=== PATIENT | female | born 1985 | race American Indian/Alaskan Native ===

== ENCOUNTER 2017-02-25 08:57 | Emergency (ER) | payer BC ==
[2017-02-25 10:42] VITALS: BP 121/67
[2017-02-25] MEDS ORDERED: FLEXERIL PO ONE (11:18)
[2017-02-25] MEDS ORDERED: NORCO 5/325 PO ONE (11:18)
--- NOTE | 2017-02-25 11:18 | Emergency Department Report ---
ED Back Pain/Injury HPI - General Chief Complaint: Back Pain/Injury Stated Complaint: BACK PAIN Time Seen by Provider: 02/25/17 11:10 Source: patient, family Limitations: No Limitations - History of Present Illness Initial Comments: Patient here reports that she has a history of chronic back pain. She said that she never had a injury but she started having back pain today she woke up and she is having pain in her entire spine. She said this is being given worse over the last 2 days and when she got up this morning was very painful. She reports pain radiating into her buttocks. Pain is worse with movement better with rest. Denies any urinary burning frequency or urgency. Denies any abdominal pain. Pain is 9 out of 10 to both sides of her back. Pain scale achy and she's been taken [id number] pain medication is not helping. MD Complaint: back pain Onset/Timin -: days(s) Similar Symptoms Previously: Yes Place: home Radiation: buttocks Severity: severe Severity scale (0 -10): 9 Quality: aching Consistency: constant Improves With: immobilization Worsens With: movement, walking Context: other (chronic pain) Associated Symptoms: denies: confusion, weakness, chest pain, numbness, difficulty walking, cough, difficulty urinating, diaphoresis, incontinence, fever/chills, constipation, headaches, abdominal pain, loss of appetite, malaise , nausea/vomiting, rash, seizure, shortness of breath, syncope Treatments Prior to Arrival: acetaminophen - Related Data Previous Rx's Medication Instructions Recorded Last Taken Type Cyclobenzaprine [Flexeril] 10 mg PO TID PRN 5 Days #15 tablet 02/25/17 Unknown Rx Ibuprofen [Motrin] 600 mg PO Q8H PRN 5 Days #15 tablet 02/25/17 Unknown Rx Allergies Allergy/AdvReac Type Severity Reaction Status Date / Time No Known Allergies Allergy Unverified 02/25/17 10:39 ED Review of Systems ROS: Stated complaint: BACK PAIN Other details as noted in HPI Comment: All other systems reviewed and negative Constitutional: no symptoms reported Respiratory: no symptoms reported Cardiovascular: denies: chest pain, palpitations, dyspnea on exertion, edema, syncope, paroxysmal nocturnal dyspnea Gastrointestinal: denies: abdominal pain, nausea, vomiting, diarrhea Genitourinary: denies: urgency, dysuria, frequency, hematuria, discharge Musculoskeletal: back pain. denies: myalgia Skin: denies: rash Neurological: denies: headache, weakness, numbness, paresthesias, confusion, abnormal gait, vertigo ED Past Medical Hx - Past Medical History Previous Medical History?: Yes Additional medical history: Chronic back pain - Surgical History Past Surgical History?: No - Family History Family history: no significant - Social History Smoking Status: Current Every Day Smoker Substance Use Type: None - Medications Home Medications: Home Medications Medication Instructions Recorded Confirmed Last Taken Type Cyclobenzaprine [Flexeril] 10 mg PO TID PRN 5 Days #15 tablet 02/25/17 Unknown Rx Ibuprofen [Motrin] 600 mg PO Q8H PRN 5 Days #15 tablet 02/25/17 Unknown Rx ED Physical Exam - General Limitations: No Limitations General appearance: alert, in no apparent distress - Head Head exam: Present: atraumatic, normocephalic, normal inspection - Eye Eye exam: Present: normal appearance, PERRL, EOMI Pupils: Present: normal accommodation - ENT ENT exam: Present: normal exam, normal orophraynx, mucous membranes moist - Neck Neck exam: Present: normal inspection, full ROM, other (no C-spine tenderness). Absent: tenderness, meningismus, lymphadenopathy, thyromegaly - Respiratory Respiratory exam: Present: normal lung sounds bilaterally. Absent: respiratory distress, chest wall tenderness - Cardiovascular Cardiovascular Exam: Present: regular rate, normal rhythm, normal heart sounds. Absent: systolic murmur, diastolic murmur - GI/Abdominal GI/Abdominal exam: Present: soft, normal bowel sounds. Absent: distended, tenderness, guarding, rebound, rigid, organomegaly, mass, bruit, pulsatile mass , hernia - Extremities Exam Extremities exam: Present: normal inspection, full ROM, normal capillary refill , other (abdomen, cyanosis or edema to extremities. +2 pulses all extremities. No neurovascular compromise. +5 strength in all extremities, no joint abnormalities.). Absent: tenderness, pedal edema, joint swelling, calf tenderness - Back Exam Back exam: Present: normal inspection, full ROM, muscle spasm (lumbar spine), other (patient ambulates without any difficulties). Absent: tenderness, CVA tenderness (R), paraspinal tenderness, vertebral tenderness, rash noted - Expanded Back Exam Expanded Back exam: Absent: saddle anesthesia Back exam: Negative Straight Leg Raising: Left, Right - Neurological Exam Neurological exam: Present: alert, oriented X3, normal gait, reflexes normal, other (no focal neurological deficit). Absent: motor sensory deficit - Psychiatric Psychiatric exam: Present: normal affect, normal mood - Skin Skin exam: Present: warm, dry, intact, normal color. Absent: rash ED Course Vital Signs 02/25/17 10:39 Temperature 98.6 F Pulse Rate 80 Respiratory 16 Rate Blood Pressure 121/67 O2 Sat by Pulse 100 Oximetry - Reevaluation(s) Reevaluation #1: 02/25/17 12:45 Patient given [place] 5/325 one tablet by mouth and Flexeril 10 mg by mouth in the emergency room which relieved her pain. ED Medical Decision Making - Lab Data Urinalysis negative for any bacterial infection Lab Results 02/25/17 Range/Units 11:21 Urine Color Yellow (Yellow) Urine Turbidity Clear (Clear) Urine pH 6.0 (5.0-7.0) Ur Specific [place] 1.020 (1.003-1.030) Urine Protein <15 mg/dl (Negative) mg/dL Urine Glucose (UA) Neg (Negative) mg/dL Urine Ketones Neg (Negative) mg/dL Urine Blood Neg (Negative) Urine Nitrite Neg (Negative) Urine Bilirubin Neg (Negative) Urine Urobilinogen 4.0 (<2.0) mg/dL Ur Leukocyte Esterase Neg (Negative) Urine WBC (Auto) < 1.0 (0.0-6.0) /HPF Urine RBC (Auto) 4.0 (0.0-6.0) /HPF U Epithel Cells (Auto) 2.0 (0-13.0) /HPF Urine Mucus Few /HPF Patient does not have sex with men and said that she is not . - Medical Decision Making ED course: Patient here for acute exacerbation of chronic back pain. She is found to have lumbar muscle spasm. This is recurrent for patient. I discussed with her she'll need to follow up with orthopedic doctor and also establish care at [facility] for management of medical problems. Patient was given [place] 5/325 1 tablets in the emergency room along with Flexeril 10 mg by mouth which relieved her pain. Patient discharged home in stable condition with prescription for Motrin and Flexeril and to follow-up with [facility] and orthopedic doctor. Critical care attestation.: If time is entered above; I have spent that time in minutes in the direct care of this critically ill patient, excluding procedure time. ED Disposition Clinical Impression: Acute exacerbation of chronic low back pain, Lumbar radiculopathy, Back muscle spasm Disposition: TO HOME OR SELFCARE Is pt being admited?: No Does the pt Need Aspirin: No Condition: Stable Instructions: Lumbar Radiculopathy (ED), Chronic Back Pain (ED), Muscle Spasm ( ED) Additional Instructions: Please follow up at [facility] and was orthopedic doctor as instructed Reason drive or operate heavy machinery while taking Flexeril as this medication causes drowsiness if your symptoms worsen, please return to the emergency room Prescriptions: Cyclobenzaprine [Flexeril] 10 mg PO TID PRN 5 Days #15 tablet PRN Reason: Muscle Spasm Ibuprofen [Motrin] 600 mg PO Q8H PRN 5 Days #15 tablet PRN Reason: Pain Referrals: [facility] [Outside] - 3-5 Days PRIMARY CAREMD [Primary Care Provider] - 3-5 Days OSITO TA MD [Staff Physician] - 3-5 Days Forms: Work/School Release Form(ED)
[2017-02-25 11:46] LABS: Bilirubin,Urine NEG (Negative); Blood,Urine NEG (Negative); Color,Urine Yellow (Yellow); Mucus,Urine FEW /HPF; Nitrite,Urine NEG (Negative); Protein,Urine <15 mg/dL mg/dL (Negative); WBC,Urine < 1.0 /HPF (0.0-6.0)
== END 2017-02-25 12:54 | disposition home or self-care (01) ==
LOC: ED 08:57
DX: M54.16 Radiculopathy, lumbar region (principal); G89.29 Other chronic pain; M62.830 Muscle spasm of back; F17.200 Nicotine dependence, unspecified, uncomplicated
CPT/HCPCS: 81001; 99283

== ENCOUNTER 2017-06-14 09:35 | Emergency (ER) | payer BC ==
[2017-06-14 10:02] VITALS: BP 111/68
[2017-06-14] MEDS ORDERED: TORADOL IM ONE (11:10)
--- NOTE | 2017-06-14 11:14 | Emergency Department Report ---
ED Back Pain/Injury HPI - General Chief Complaint: Back Pain/Injury Stated Complaint: NECK/BACK PAIN Time Seen by Provider: 06/14/17 10:42 Source: patient Limitations: No Limitations - History of Present Illness Initial Comments: Patient is a 32-year-old black female past medical history of stiffness in her neck and back at baseline which is worse in the last 24 hours. Patient is not red count any specific traumas and they have led to the pain worsening. Patient states 8 out of 10 in severity from the mid back radiating up to the neck. Patient states is better when she holds her neck in flexion. Patient states is worse when she is sitting upright. Patient has not followed up with orthopedic doctor regarding her back pains. Patient denies any fevers chills cough cold congestion or urinary symptoms at this time. - Related Data Previous Rx's Medication Instructions Recorded Last Taken Type Cyclobenzaprine [Flexeril] 10 mg PO TID PRN 5 Days #15 tablet 02/25/17 Unknown Rx Ibuprofen [Motrin] 600 mg PO Q8H PRN 5 Days #15 tablet 02/25/17 Unknown Rx Ibuprofen [Motrin] 600 mg PO Q8H PRN #20 tablet 06/14/17 Unknown Rx methOCARBAMOL [Robaxin TAB] 500 mg PO Q6H PRN #15 tablet 06/14/17 Unknown Rx traMADol [Ultram] 50 mg PO Q6HR PRN #10 tablet 06/14/17 Unknown Rx Allergies Allergy/AdvReac Type Severity Reaction Status Date / Time No Known Allergies Allergy Unverified 02/25/17 10:39 ED Review of Systems ROS: Stated complaint: NECK/BACK PAIN Other details as noted in HPI Comment: All other systems reviewed and negative ED Past Medical Hx - Past Medical History Chronic back pain Family history: no significant family history ED Back Pain Physical Exam - Exam General: Vital signs noted. No distress. Alert and acting appropriately. Back/Abdomen: Yes Perithoracic Tenderness, No Abdominal Tenderness, No Perilumbar Tenderness, No Sacroiliac Tenderness, No Flank Tenderness, No Straight Leg Raise Pain Neuro: Yes Normal Sensation, Yes Normal DTR's, Yes Normal Gait, No Motor Weakness ED Course Vital Signs 06/14/17 09:58 Temperature 98.4 F Pulse Rate 72 Respiratory 16 Rate Blood Pressure 111/68 O2 Sat by Pulse 99 Oximetry ED Medical Decision Making - Medical Decision Making Patient with acute on chronic back pain. Patient was given a Toradol shot and will be referred to orthopedics. Critical care attestation.: If time is entered above; I have spent that time in minutes in the direct care of this critically ill patient, excluding procedure time. ED Disposition Clinical Impression: Back pain Qualifiers: Back pain location: thoracic back pain Chronicity: acute Back pain laterality: midline Qualified Code(s): M54.6 - Pain in thoracic spine Disposition: - TO HOME OR SELFCARE Is pt being admited?: No Does the pt Need Aspirin: No Condition: Stable Instructions: Back Pain (ED) Referrals: OSITO TA MD [Staff Physician] - 3-5 Days
== END 2017-06-14 11:31 | disposition home or self-care (01) ==
LOC: ED 09:35
DX: M54.6 Pain in thoracic spine (principal); G89.29 Other chronic pain
CPT/HCPCS: 96372; 99282; J1885

== ENCOUNTER 2017-09-05 10:17 | Emergency (ER) | payer BC ==
[2017-09-05 11:06] VITALS: BP 107/53
[2017-09-05] MEDS ORDERED: TORADOL IM ONE ×3 (13:20→13:40)
[2017-09-05] MEDS ORDERED: TORADOL ONE (13:38)
--- NOTE | 2017-09-05 13:43 | Emergency Department Report ---
ED Back Pain/Injury HPI - General Chief Complaint: Back Pain/Injury Stated Complaint: BACK PAIN/SPINE SOAR Time Seen by Provider: 09/05/17 12:52 Source: patient Limitations: No Limitations - History of Present Illness Initial Comments: This is a 32-year-old female nontoxic, well nourished in appearance, no acute signs of distress presents to the ED with c/o of acute on chronic upper back pain. Patient stated that the past 2 days she was moving and developed this pain. Patient denies any radiation of pain. Patient denies any trauma. Denies any bladder or bowel instability. Patient denies any urinary symptoms. Denies any fever, chills, nausea, vomiting, headache, stiff neck, chest pain or shortness of breath. Patient denies any numbness or tingling. Denies any allergies. Denies significant past medical history. MD Complaint: back pain -: days(s) (2) Similar Symptoms Previously: Yes Radiation: none Severity: mild Severity scale (0 -10): 8 Quality: aching Consistency: constant Improves With: immobilization, supine, sitting upright Worsens With: movement Context: while lifting, turning/twisting Associated Symptoms: denies other symptoms. denies: confusion, weakness, chest pain, numbness, difficulty walking, cough, difficulty urinating, diaphoresis, incontinence, fever/chills, constipation, headaches, abdominal pain, loss of appetite, malaise, nausea/vomiting, rash, seizure, shortness of breath, syncope - Related Data Previous Rx's Medication Instructions Recorded Last Taken Type Cyclobenzaprine [Flexeril] 10 mg PO TID PRN 5 Days #15 tablet 02/25/17 Unknown Rx Ibuprofen [Motrin] 600 mg PO Q8H PRN 5 Days #15 tablet 02/25/17 Unknown Rx Ibuprofen [Motrin] 600 mg PO Q8H PRN #20 tablet 06/14/17 Unknown Rx methOCARBAMOL [Robaxin TAB] 500 mg PO Q6H PRN #15 tablet 06/14/17 Unknown Rx traMADol [Ultram] 50 mg PO Q6HR PRN #10 tablet 06/14/17 Unknown Rx Cyclobenzaprine [Flexeril] 10 mg PO BID PRN #14 tablet 09/05/17 Unknown Rx Ibuprofen [Motrin] 600 mg PO Q8H PRN #30 tablet 09/05/17 Unknown Rx Allergies Allergy/AdvReac Type Severity Reaction Status Date / Time No Known Allergies Allergy Unverified 02/25/17 10:39 ED Review of Systems ROS: Stated complaint: BACK PAIN/SPINE SOAR Other details as noted in HPI Constitutional: denies: chills, fever Eyes: denies: eye pain, eye discharge, vision change ENT: denies: ear pain, throat pain Respiratory: denies: cough, shortness of breath, wheezing Cardiovascular: denies: chest pain, palpitations Endocrine: no symptoms reported Gastrointestinal: denies: abdominal pain, nausea, diarrhea Genitourinary: denies: urgency, dysuria, discharge Musculoskeletal: back pain. denies: joint swelling, arthralgia Skin: denies: rash, lesions Neurological: denies: headache, weakness, paresthesias Psychiatric: denies: anxiety, depression Hematological/Lymphatic: denies: easy bleeding, easy bruising ED Past Medical Hx - Past Medical History Previous Medical History?: Yes Additional medical history: Chronic back pain - Surgical History Past Surgical History?: Yes - Social History Smoking Status: Never Smoker - Medications Home Medications: Home Medications Medication Instructions Recorded Confirmed Last Taken Type Cyclobenzaprine [Flexeril] 10 mg PO TID PRN 5 Days #15 tablet 02/25/17 Unknown Rx Ibuprofen [Motrin] 600 mg PO Q8H PRN 5 Days #15 tablet 02/25/17 Unknown Rx Ibuprofen [Motrin] 600 mg PO Q8H PRN #20 tablet 06/14/17 Unknown Rx methOCARBAMOL [Robaxin TAB] 500 mg PO Q6H PRN #15 tablet 06/14/17 Unknown Rx traMADol [Ultram] 50 mg PO Q6HR PRN #10 tablet 06/14/17 Unknown Rx Cyclobenzaprine [Flexeril] 10 mg PO BID PRN #14 tablet 09/05/17 Unknown Rx Ibuprofen [Motrin] 600 mg PO Q8H PRN #30 tablet 09/05/17 Unknown Rx ED Physical Exam - General Limitations: No Limitations General appearance: alert, in no apparent distress - Head Head exam: Present: atraumatic, normocephalic - Eye Eye exam: Present: normal appearance Pupils: Present: normal accommodation - ENT ENT exam: Present: normal exam, mucous membranes moist - Neck Neck exam: Present: normal inspection, full ROM. Absent: tenderness, meningismus, lymphadenopathy - Respiratory Respiratory exam: Present: normal lung sounds bilaterally. Absent: respiratory distress, wheezes, rales, rhonchi, stridor, chest wall tenderness, accessory muscle use, decreased breath sounds, prolonged expiratory - Cardiovascular Cardiovascular Exam: Present: regular rate, normal rhythm, normal heart sounds. Absent: irregular rhythm, systolic murmur, diastolic murmur, rubs, gallop - GI/Abdominal GI/Abdominal exam: Present: soft, normal bowel sounds. Absent: distended, tenderness, guarding, rebound, rigid, diminished bowel sounds - Rectal Rectal exam: Present: deferred - Extremities Exam Extremities exam: Present: normal inspection, full ROM, normal capillary refill - Back Exam Back exam: Present: normal inspection, full ROM, paraspinal tenderness ( paracervical area). Absent: tenderness, CVA tenderness (R), CVA tenderness (L) , muscle spasm, vertebral tenderness, rash noted - Expanded Back Exam Expanded Back exam: Absent: saddle anesthesia Back exam: Negative Straight Leg Raising: Left, Right - Neurological Exam Neurological exam: Present: alert, oriented X3, normal gait - Psychiatric Psychiatric exam: Present: normal affect, normal mood - Skin Skin exam: Present: warm, dry, intact, normal color. Absent: rash ED Course Vital Signs 09/05/17 10:48 Temperature 97.7 F Pulse Rate 66 Respiratory 16 Rate Blood Pressure 107/53 O2 Sat by Pulse 100 Oximetry - Reevaluation(s) Reevaluation #1: 09/05/17 13:46 Patient is speaking in full sentences with no signs of distress noted. ED Medical Decision Making - Medical Decision Making This is a 32-year-old female that presents with upper back strain. Patient is stable was examined by me. There is no spinal tenderness. There is no cauda equina syndrome during examination. No bladder or bowel instability. Patient received Toradol 30 mg IM in the ED which preceded his symptoms has resolved and subsided. Patient is discharged with muscle relaxant and Motrin. Patient was instructed not to operate any machinery while taking muscle relaxant as they cause her drowsiness. Patient was referred to Follow-up with a primary care doctor in 3-5 days or if symptoms worsen and continue return to emergency room as soon as possible. At time of discharge, the patient does not seem toxic or ill in appearance. No acute signs of distress noted. Patient agrees to discharge treatment plan of care. No further questions noted by the patient. This chart is dictated with using [employer] Critical care attestation.: If time is entered above; I have spent that time in minutes in the direct care of this critically ill patient, excluding procedure time. ED Disposition Clinical Impression: Cervical muscle strain Qualifiers: Encounter type: initial encounter Qualified Code(s): S16.1XXA - Strain of muscle, fascia and tendon at neck level, initial encounter Disposition: TO HOME OR SELFCARE Is pt being admited?: No Does the pt Need Aspirin: No Condition: Stable Instructions: Muscle Strain (ED), Cyclobenzaprine (By mouth), Ibuprofen (By mouth) Additional Instructions: Follow-up with your primary care doctor in 3-5 days or if symptoms worsen such as bladder or bowel stability, chest pain, short of breath, numbness or tingling sensation in extremities, headache, dizziness, visual changes, nausea vomiting, or abdominal pain, return back to emergency room as was possible. Take ibuprofen and Flexeril as prescribed. Do not operate heavy machinery while taking Flexeril due to sedation Prescriptions: Cyclobenzaprine [Flexeril] 10 mg PO BID PRN #14 tablet PRN Reason: Muscle Spasm Ibuprofen [Motrin] 600 mg PO Q8H PRN #30 tablet PRN Reason: Pain Referrals: PRIMARY CARE, [Primary Care Provider] - 3-5 Days MITZI ELLISON MD [Staff Physician] - 3-5 Days [facility] [Outside] - 3-5 Days [facility] [Outside] - 3-5 Days Forms: Work/School Release Form(ED)
== END 2017-09-05 14:02 | disposition home or self-care (01) ==
LOC: ED 10:17
DX: S16.1XXA Strain of muscle, fascia and tendon at neck level, initial encounter (principal); X58.XXXA Exposure to other specified factors, initial encounter; Y93.89 Activity, other specified; Y92.89 Other specified places as the place of occurrence of the external cause; Y99.8 Other external cause status
CPT/HCPCS: 96372; 99282; J1885

== ENCOUNTER 2019-08-19 08:41 | Emergency (ER) | payer SELFPAY ==
--- NOTE | 2019-08-19 10:32 | Emergency Department Report ---
ED Female HPI - General Chief complaint: Urogenital-Female Stated complaint: BACK PAIN, GROIN PAIN Time Seen by Provider: 08/19/19 10:07 Source: patient Mode of arrival: Ambulatory Limitations: No Limitations - History of Present Illness Initial comments: 34-year-old female presents to the ER today complaint of vaginal itching, vaginal pain and irritation as well as thoracic back pain. Patient reports that her thoracic back pain has been chronic, but every now and then it flares up and this time it flared up about a week ago. She denies any injury or strenuous activity that could have flared up a week ago. She states that she has been to the ER multiple times for his back pain. She has never been seen by orthopedic pacs specialist for her pain no she had an MRI of her back. She states that she has been taking 800 mg ibuprofen without much relief. Pain seems to be worse with movement and on palpation. She reports no pleuritic pain. She reports no associated chest pain or shortness of breath or abdominal pain. She reports no numbness, tingling, focal weakness, bowel or bladder incontinence. Patient states that her vaginal itching, irritation and pain started about 3 days ago. She denies any vaginal discharge, or abnormal vaginal bleeding. She denies any dysuria or any other UTI symptoms. She reports no pelvic pain, or a bdominal pain. Last menstrual cycle was 08/05/2019. Sexualitiy - homosexual. MD Complaint: other (Vaginal pain, itching and irritation; thoracic back pain) - Related Data Previous Rx's Medication Instructions Recorded Last Taken Type Cyclobenzaprine [Flexeril] 10 mg PO TID PRN 5 Days #15 tablet 02/25/17 Unknown Rx Ibuprofen [Motrin] 600 mg PO Q8H PRN 5 Days #15 tablet 02/25/17 Unknown Rx Ibuprofen [Motrin] 600 mg PO Q8H PRN #20 tablet 06/14/17 Unknown Rx Cyclobenzaprine [Flexeril] 10 mg PO BID PRN #14 tablet 09/05/17 Unknown Rx Ibuprofen [Motrin] 600 mg PO Q8H PRN #30 tablet 09/05/17 Unknown Rx methOCARBAMOL [Robaxin TAB] 500 mg PO Q6H PRN #15 tablet 08/19/19 Unknown Rx metroNIDAZOLE [Flagyl] 500 mg PO Q12HR #14 tab 08/19/19 Unknown Rx traMADoL [Ultram 50 MG tab] 50 mg PO Q6HR PRN #10 tablet 08/19/19 Unknown Rx Allergies Allergy/AdvReac Type Severity Reaction Status Date / Time No Known Allergies Allergy Unverified 02/25/17 10:39 ED Review of Systems ROS: Stated complaint: BACK PAIN, GROIN PAIN Other details as noted in HPI Comment: All other systems reviewed and negative Gastrointestinal: denies: abdominal pain, nausea, vomiting Genitourinary: other (+ vaginal itching/irritation). denies: urgency, dysuria, frequency, hematuria, discharge, abnormal menses, dyspareunia Skin: denies: rash Psychiatric: denies: anxiety, depression Hematological/Lymphatic: denies: easy bleeding, easy bruising ED Past Medical Hx - Past Medical History Previous Medical History?: Yes Additional medical history: Chronic back pain - Surgical History Past Surgical History?: No - Social History Smoking Status: Current Every Day Smoker Substance Use Type: None - Medications Home Medications: Home Medications Medication Instructions Recorded Confirmed Last Taken Type Cyclobenzaprine [Flexeril] 10 mg PO TID PRN 5 Days #15 tablet 02/25/17 Unknown Rx Ibuprofen [Motrin] 600 mg PO Q8H PRN 5 Days #15 tablet 02/25/17 Unknown Rx Ibuprofen [Motrin] 600 mg PO Q8H PRN #20 tablet 06/14/17 Unknown Rx Cyclobenzaprine [Flexeril] 10 mg PO BID PRN #14 tablet 09/05/17 Unknown Rx Ibuprofen [Motrin] 600 mg PO Q8H PRN #30 tablet 09/05/17 Unknown Rx methOCARBAMOL [Robaxin TAB] 500 mg PO Q6H PRN #15 tablet 08/19/19 Unknown Rx metroNIDAZOLE [Flagyl] 500 mg PO Q12HR #14 tab 08/19/19 Unknown Rx traMADoL [Ultram 50 MG tab] 50 mg PO Q6HR PRN #10 tablet 08/19/19 Unknown Rx ED Physical Exam - General Limitations: No Limitations General appearance: alert, in no apparent distress - Respiratory Respiratory exam: Present: normal lung sounds bilaterally. Absent: respiratory distress - Cardiovascular Cardiovascular Exam: Present: regular rate, normal rhythm, normal heart sounds - GI/Abdominal GI/Abdominal exam: Present: soft. Absent: distended, tenderness, guarding - External exam: Present: other (There is mild well demarcated erythematous rash noted lower labia majora bilateral concerning for yeast infect;skin exocriation noted to lower aspect labia majora around the introitus, L>R, no ttp; ) Speculum exam: Present: vaginal discharge (small amt, thick white discharge). Absent: cervical discharge, vaginal bleeding, foreign body - Back Exam Back exam: Present: other (Mod ttp soft tissue/muscle ttp mid thoracic back, mainly on right with spasm. Mild midline ttp in that area. No deformity, ecchymosis, rash, or erythema noted. ROM of spine nl but with some pain. ) - Neurological Exam Neurological exam: Present: alert, oriented X3, CN II-XII intact, normal gait. Absent: motor sensory deficit - Psychiatric Psychiatric exam: Present: normal affect, normal mood - Skin Skin exam: Present: intact ED Course Vital Signs 08/19/19 08/19/19 08:44 13:10 Temperature 98.3 F Pulse Rate 93 H 85 Respiratory 16 16 Rate Blood Pressure 131/75 Blood Pressure 107/72 [Right] O2 Sat by Pulse 99 100 Oximetry Critical care attestation.: If time is entered above; I have spent that time in minutes in the direct care of this critically ill patient, excluding procedure time. ED Disposition Clinical Impression: Vulval candidiasis, Bacterial vaginosis Disposition: - TO HOME OR SELFCARE Is pt being admited?: No Does the pt Need Aspirin: No Condition: Stable Instructions: Bacterial Vaginosis (ED), Vulvovaginal Candidiasis (ED) Additional Instructions: I recommend using monistat cream to external vaginal area. Recommend also over the counter feminine wash. I recommend following up with primary care doctor for referral to orthopedic pacs specialist for an MRI of her back. Return to ED if worse. Prescriptions: metroNIDAZOLE [Flagyl] 500 mg PO Q12HR #14 tab methOCARBAMOL [Robaxin TAB] 500 mg PO Q6H PRN #15 tablet PRN Reason: Pain traMADoL [Ultram 50 MG tab] 50 mg PO Q6HR PRN #10 tablet PRN Reason: Pain Referrals: ILEANA LANGSTON MD [Staff Physician] - 3-5 Days Forms: Work/School Release Form(ED) Time of Disposition: 13:03
[2019-08-19] MEDS ORDERED: DEXAMETHASONE 4 MG TAB PO ONE (10:33)
[2019-08-19] MEDS ORDERED: CYCLOBENZAPRINE 10 MG TAB PO ONE (10:34)
[2019-08-19 12:49] LABS: Bilirubin,Urine NEG (Negative); Blood,Urine NEG (Negative); Color,Urine Yellow (Yellow); Protein,Urine <15 mg/dL mg/dL (Negative); Urobilinogen,Urine < 2.0 mg/dL (<2.0)
[2019-08-19 12:56] LABS: HCG Qualitative,Urine Negative (Negative)
[2019-08-19 13:13] VITALS: BP 107/72
== END 2019-08-19 13:12 | disposition home or self-care (01) ==
LOC: ED 08:41
DX: N76.0 Acute vaginitis (principal); B37.3 Candidiasis of vulva and vagina; F17.200 Nicotine dependence, unspecified, uncomplicated; Z79.899 Other long term (current) drug therapy
CPT/HCPCS: 81001; 81025; 87210; 87591; 99283; J8540

== ENCOUNTER 2021-02-04 11:18 | Emergency (ER) | payer OTHER ==
--- NOTE | 2021-02-04 12:11 | Emergency Department Report ---
ED Female HPI - General Chief complaint: Abdominal Pain Stated complaint: PAIN Source: patient Mode of arrival: Ambulatory Limitations: No Limitations - History of Present Illness Initial comments: 35-year-old -[place] female has a 5-day history of mild pelvic discomfort and dysuria. She also complains of a 2 to 3-day history of upper back pain and left lower back pain that radiates to her buttock. 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 States that she is not on the best pain gets better. She does admit that she has tightness up in her upper back from using the steering well on the bus. She admits to having unprotected intercourse. She denies any vaginal discharge. Reports she is not allergic to any medications. No past medical history. MD Complaint: dysuria, pelvic pain Onset/Timin -: days(s) - Related Data Previous Rx's Medication Instructions Recorded Last Taken Type Cyclobenzaprine [Flexeril] 10 mg PO TID PRN 5 Days #15 tablet 02/25/17 Unknown Rx Ibuprofen [Motrin] 600 mg PO Q8H PRN 5 Days #15 tablet 02/25/17 Unknown Rx Ibuprofen [Motrin] 600 mg PO Q8H PRN #20 tablet 06/14/17 Unknown Rx Cyclobenzaprine [Flexeril] 10 mg PO BID PRN #14 tablet 09/05/17 Unknown Rx metroNIDAZOLE [Flagyl] 500 mg PO Q12HR #14 tab 08/19/19 Unknown Rx traMADoL [Ultram 50 MG tab] 50 mg PO Q6HR PRN #10 tablet 08/19/19 Unknown Rx Doxycycline Hyclate [Doxycycline 100 mg PO Q12HR 7 Days #14 tab 02/04/21 Unknown Rx Hyclate TAB] Ibuprofen [Motrin 600 MG tab] 600 mg PO Q8H PRN #30 tablet 02/04/21 Unknown Rx methOCARBAMOL [Robaxin TAB] 500 mg PO Q6H PRN #15 tablet 02/04/21 Unknown Rx Allergies Allergy/AdvReac Type Severity Reaction Status Date / Time No Known Allergies Allergy Verified 02/04/21 11:24 ED Review of Systems ROS: Stated complaint: PAIN Other details as noted in HPI Comment: All other systems reviewed and negative ED Past Medical Hx - Past Medical History Previous Medical History?: No Additional medical history: Chronic back pain - Surgical History Past Surgical History?: No - Social History Smoking Status: Current Every Day Smoker Substance Use Type: None - Medications Home Medications: Home Medications Medication Instructions Recorded Confirmed Last Taken Type Cyclobenzaprine [Flexeril] 10 mg PO TID PRN 5 Days #15 tablet 02/25/17 Unknown Rx Ibuprofen [Motrin] 600 mg PO Q8H PRN 5 Days #15 tablet 02/25/17 Unknown Rx Ibuprofen [Motrin] 600 mg PO Q8H PRN #20 tablet 06/14/17 Unknown Rx Cyclobenzaprine [Flexeril] 10 mg PO BID PRN #14 tablet 09/05/17 Unknown Rx metroNIDAZOLE [Flagyl] 500 mg PO Q12HR #14 tab 08/19/19 Unknown Rx traMADoL [Ultram 50 MG tab] 50 mg PO Q6HR PRN #10 tablet 08/19/19 Unknown Rx Doxycycline Hyclate [Doxycycline 100 mg PO Q12HR 7 Days #14 tab 02/04/21 Unknown Rx Hyclate TAB] Ibuprofen [Motrin 600 MG tab] 600 mg PO Q8H PRN #30 tablet 02/04/21 Unknown Rx methOCARBAMOL [Robaxin TAB] 500 mg PO Q6H PRN #15 tablet 02/04/21 Unknown Rx ED Physical Exam - General Limitations: No Limitations ED Course Vital Signs 02/04/21 11:26 Temperature 98.3 F Pulse Rate 103 H Respiratory 15 Rate Blood Pressure 114/80 O2 Sat by Pulse 98 Oximetry ED Medical Decision Making - Medical Decision Making 35-year-old -[place] female has a 5-day history of mild pelvic discomfort and dysuria. She also complains of a 2 to 3-day history of upper back pain and left lower back pain that radiates to her buttock. 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 States that she is not on the best pain gets better. She does admit that she has tightness up in her upper back from using the steering well on the bus. She admits to having unprotected intercourse. She denies any vaginal discharge. Reports she is not allergic to any medications. No past medical history. Critical care attestation.: If time is entered above; I have spent that time in minutes in the direct care of this critically ill patient, excluding procedure time. ED Disposition Clinical Impression: Concern about STD in female without diagnosis, Left-sided low back pain with sciatica, Muscle strain of upper back Disposition: 01 HOME / SELF CARE / HOMELESS Is pt being admited?: No Does the pt Need Aspirin: No Condition: Stable Instructions: Abdominal Pain (ED), Muscle Strain, [id number], Sciatica, [id number] Additional Instructions: Please complete antibiotic as prescribed. Your urinalysis was negative for any concerns for UTI. Please take pain medication as needed. Sciatica. Muscle giving a prescription for muscle relaxant do not operate heavy machinery while taking this muscle relaxant. Prescriptions: Doxycycline Hyclate [Doxycycline Hyclate TAB] 100 mg PO Q12HR 7 Days #14 tab Ibuprofen [Motrin 600 MG tab] 600 mg PO Q8H PRN #30 tablet PRN Reason: Pain methOCARBAMOL [Robaxin TAB] 500 mg PO Q6H PRN #15 tablet PRN Reason: Pain Referrals: [facility] [Provider Group] - 3-5 Days Time of Disposition: 13:35
[2021-02-04] MEDS ORDERED: LIDOCAINE-MPF (1%) 10 MG/1 ML VIAL 5 ML INFILTRATI ONE (12:14)
[2021-02-04 13:02] LABS: Bacteria,Urine 1+ /HPF (Negative); Bilirubin,Urine NEG (Negative); Blood,Urine NEG (Negative); Color,Urine Yellow (Yellow); Mucus,Urine 3+ /HPF; Protein,Urine <15 mg/dL mg/dL (Negative); Urobilinogen,Urine < 2.0 mg/dL (<2.0)
[2021-02-04 13:04] LABS: HCG Qualitative,Urine Negative (Negative)
[2021-02-04 14:00] VITALS: BP 110/70
== END 2021-02-04 14:00 | disposition home or self-care (01) ==
LOC: ED 11:18
DX: S29.012A Strain of muscle and tendon of back wall of thorax, initial encounter (principal); M54.42 Lumbago with sciatica, left side; Z20.2 Contact with and (suspected) exposure to infections with a predominantly sexual mode of transmission; R30.0 Dysuria; G89.29 Other chronic pain; F17.200 Nicotine dependence, unspecified, uncomplicated; X58.XXXA Exposure to other specified factors, initial encounter; Y93.89 Activity, other specified; Y92.89 Other specified places as the place of occurrence of the external cause; Y99.8 Other external cause status
CPT/HCPCS: 81001; 81025; 99283; J0696; J3490